=== PATIENT | male | born 1960 | race Caucasian/White ===

== ENCOUNTER 2017-02-08 13:49 | Emergency (ER) | payer OTHER ==
[~2017-02-08] VITALS: Ht 188 cm; Wt 116.2 kg
[~2017-02-08 13:49] MED LIST: AMLODIPINE BESY10 MG PO; ASCORBIC ACID500 M3 PO; ASPIR 8181 M1 PO; B COMPLETE1 EACH PO; FISH OIL 1,0001 EA10 PO; FLAXSEED OIL1000 M4 PO; FLOMAX0.4 MG PO; MONTELUKAST SOD10 MG PO; MULTIPLE VITAM1 EAC1 PO; PERCOCET 5/31 TABLET PO; SERTRALINE HCL50 MG PO; VALSARTAN-HCTZ1 EAC3 PO; VITAMIN E400 UNIT PO; VYTORIN 10/21 TABLET PO; ZOFRAN4 MG PO
[2017-02-08] MEDS ORDERED: POTASSIUM CHLO20 ME2 PO (15:54)
[2017-02-08] MEDS ORDERED: SINGULAIR10 MG PO (15:55)
[2017-02-08] MEDS ORDERED: SKELAXIN800 MG PO (16:50)
[2017-02-08] MEDS ORDERED: NORCO 5/3251 TABLET PO (16:50)
[2017-02-08] MEDS ORDERED: MOTRIN600 MG PO (16:50)
[2017-02-08 17:03] VITALS: BP 168/97
== END 2017-02-08 17:05 | disposition home or self-care (01) ==
LOC: EME 13:49
DX: S16.1XXA Strain of muscle, fascia and tendon at neck level, initial encounter (principal); S46.912A Strain of unspecified muscle, fascia and tendon at shoulder and upper arm level, left arm, initial encounter; V49.40XA Driver injured in collision with unspecified motor vehicles in traffic accident, initial encounter; R94.31 Abnormal electrocardiogram [ECG] [EKG]; E78.5 Hyperlipidemia, unspecified; I10 Essential (primary) hypertension; Z88.1 Allergy status to other antibiotic agents
CPT/HCPCS: 72125; 73030; 93005; 99281; 99284